=== PATIENT | female | born 1975 | race Caucasian/White ===

== ENCOUNTER 2022-11-30 00:35 | Inpatient (IN) | payer OTHER ==
[2022-11-30] MEDS ORDERED: ONDANSETRON *ODT* 4 MG TABLET ONE (01:30)
[2022-11-30] MEDS ORDERED: ONDANSETRON *ODT* 4 MG TABLET SL ONE (01:40)
[2022-11-30] MEDS ORDERED: morphine CARPU-JECT 4 MG/1 ML DISP.SYRIN IVPUSH ONE (01:40)
[2022-11-30] MEDS ORDERED: SODIUM CHLORIDE 0.9% 500 ML INFUS.BAG IV ONE (01:40)
[2022-11-30] MEDS ORDERED: morphine SULFATE 4 MG/ML VIAL ONE (02:14)
[2022-11-30 02:48] LABS: BASO % 0.2 % (0-2.0); HEMOGLOBIN 9.4 GM/dL (10.7-15.3); LYMPH % 22.8 % (8-40); MCHC 31.3 g/dl (32.0-36.0); MEAN PLT VOLUME 8.3 fl (7.5-11.1); MONO % 10.1 % (3.8-10.2); NEUT % 65.9 % (42.8-82.8); PLATELET COUNT 397 10^3/uL (134-434); RBC 4.69 M/mm3 (3.60-5.2); RDW 19.5 % (11.6-15.6); WHITE BLOOD COUNT 9.7 K/mm3 (4.0-10.0)
[2022-11-30 03:07] LABS: CALCIUM 9.4 mg/dL (8.5-10.1)
[2022-11-30 03:08] LABS: ALBUMIN 3.8 g/dl (3.4-5.0); MAGNESIUM 2.2 mg/dL (1.8-2.4)
[2022-11-30 03:11] LABS: CREATININE 0.7 mg/dL (0.55-1.3)
[2022-11-30 03:12] LABS: TOT PROT 7.8 g/dl (6.4-8.2)
[2022-11-30 03:13] LABS: BILIRUBIN,TOTAL 0.2 mg/dL (0.2-1)
[2022-11-30 03:15] LABS: INR 0.95 (0.83-1.09)
[2022-11-30 03:18] LABS: ACTIVATED PTT 35.2 SECONDS (25.2-36.5)
[2022-11-30 03:34] LABS: URINE APPEARANCE CLOUDY; URINE BILIRUBIN NEGATIVE (NEGATIVE); URINE COLOR YELLOW; URINE GLUCOSE (UA) NEGATIVE (NEGATIVE); URINE KETONE NEGATIVE (NEGATIVE); URINE LEUK ESTERASE NEGATIVE (NEGATIVE); URINE NITRITE NEGATIVE (NEGATIVE); URINE PROTEIN NEGATIVE (NEGATIVE); URINE UROBILINOGEN 0.2 mg/dL (0.2-1.0)
[2022-11-30] MEDS ORDERED: CEFTRIAXONE 1,000 MG in DEXTROSE 5%-WATER - 50 ML IVPB ONE (04:28)
[2022-11-30] MEDS ORDERED: CEFTRIAXONE 1 GM/50 ML BAG ONE (05:06)
[2022-11-30 05:30] LABS: ANISOCYTOSIS 3+; MACROCYTOSIS 0; ROULEAU 1+
[2022-11-30] MEDS ORDERED: morphine CARPU-JECT 2 MG/1 ML DISP.SYRIN IVPUSH ONE (05:44)
[2022-11-30] MEDS ORDERED: ONDANSETRON 4 MG/2 ML VIAL IVPUSH PRN (05:48)
[2022-11-30] MEDS: SODIUM CHLORIDE 1,000 ML IV SCH ×2 (06:28→15:17)
[2022-11-30 09:10] LABS: RETICULOCYTES 1.49 % (0.5-1.5)
[2022-11-30 13:22] VITALS: BMI 37.4
[2022-11-30] MEDS ORDERED: AMPICILLIN NA/SULBACTAM NA 3 GM in SODIUM CHLORIDE 100 ML IVPB SCH (15:00)
[2022-11-30] MEDS: ACETAMINOPHEN 1000 MG/100 ML BAG IVPB PRN (15:18)
[2022-11-30] MEDS: AMPICILLIN NA/SULBACTAM NA 3 GM in SODIUM CHLORIDE 100 ML IVPB SCH ×2 (15:54→21:09)
[2022-11-30] MEDS: D5-1/2NS+10 MEQ KCL - 10 MEQ/1,000 ML INFUS.BAG IV SCH (17:57)
[2022-11-30] MEDS: FAMOTIDINE 20 MG/50 ML IVPB 20 MG/50 ML MG IVPB SCH (22:51)
[2022-12-01] MEDS: AMPICILLIN NA/SULBACTAM NA 3 GM in SODIUM CHLORIDE 100 ML IVPB SCH ×4 (03:28→21:32)
[2022-12-01] MEDS: D5-1/2NS+10 MEQ KCL - 10 MEQ/1,000 ML INFUS.BAG IV SCH ×3 (05:39→23:47)
[2022-12-01 08:42] LABS: BASO % 0.3 % (0-2.0); EOS % 1.7 % (0-4.5); HEMATOCRIT 25.5 % (32.4-45.2); HEMOGLOBIN 8.3 GM/dL (10.7-15.3); MCH 20.8 pg (25.7-33.7); MCHC 32.5 g/dl (32.0-36.0); MEAN CELL VOLUME 63.9 fl (80-96); MEAN PLT VOLUME 8.1 fl (7.5-11.1); MONO % 10.2 % (3.8-10.2); NEUT % 57.8 % (42.8-82.8); PLATELET COUNT 294 10^3/uL (134-434); RBC 3.99 M/mm3 (3.60-5.2); RDW 19.7 % (11.6-15.6); WHITE BLOOD COUNT 6.7 K/mm3 (4.0-10.0)
[2022-12-01] MEDS ORDERED: IRON SUCROSE INJECTION 200 MG in SODIUM CHLORIDE 90 ML IVPB ONE (09:00)
[2022-12-01 09:05] LABS: CALCIUM 8.8 mg/dL (8.5-10.1)
[2022-12-01 09:06] LABS: ALBUMIN 3.2 g/dl (3.4-5.0); BLOOD UREA NITROGEN 7.8 mg/dL (7-18)
[2022-12-01 09:09] LABS: CREATININE 0.6 mg/dL (0.55-1.3)
[2022-12-01 09:10] LABS: BILIRUBIN,TOTAL 0.5 mg/dL (0.2-1)
[2022-12-01 09:11] LABS: TOT PROT 6.7 g/dl (6.4-8.2)
[2022-12-01] MEDS ORDERED: CEFTRIAXONE 1 GM in DEXTROSE 5%-WATER - 50 ML IVPB SCH (10:00)
[2022-12-01] MEDS: FAMOTIDINE 20 MG/50 ML IVPB 20 MG/50 ML MG IVPB SCH ×2 (12:55→22:36)
[2022-12-01] MEDS: ACETAMINOPHEN 1000 MG/100 ML BAG IVPB PRN (16:08)
[2022-12-02] MEDS: AMPICILLIN NA/SULBACTAM NA 3 GM in SODIUM CHLORIDE 100 ML IVPB SCH ×3 (02:31→15:44)
[2022-12-02 09:12] LABS: HEMATOCRIT 26.5 % (32.4-45.2); HEMOGLOBIN 8.3 GM/dL (10.7-15.3); MCH 20.1 pg (25.7-33.7); MCHC 31.3 g/dl (32.0-36.0); MEAN PLT VOLUME 8.7 fl (7.5-11.1); PLATELET COUNT 298 10^3/uL (134-434); RBC 4.14 M/mm3 (3.60-5.2); RDW 19.1 % (11.6-15.6); WHITE BLOOD COUNT 6.7 K/mm3 (4.0-10.0)
[2022-12-02 09:44] LABS: CALCIUM 8.5 mg/dL (8.5-10.1)
[2022-12-02 09:45] LABS: ALBUMIN 3.2 g/dl (3.4-5.0); BLOOD UREA NITROGEN 9.3 mg/dL (7-18); MAGNESIUM 2.1 mg/dL (1.8-2.4)
[2022-12-02 09:47] LABS: CREATININE 0.7 mg/dL (0.55-1.3); PHOSPHOROUS 3.7 mg/dL (2.5-4.9)
[2022-12-02 09:48] LABS: BILIRUBIN,TOTAL 0.4 mg/dL (0.2-1); TOT PROT 6.6 g/dl (6.4-8.2)
[2022-12-02] MEDS: FAMOTIDINE 20 MG/50 ML IVPB 20 MG/50 ML MG IVPB SCH (10:26)
[2022-12-02] MEDS ORDERED: BUPIVACAINE HCL/PF 0.5% (5MG/ML) 10 ML VIAL ONE (12:26)
[2022-12-02] MEDS ORDERED: ACETAMINOPHEN INJECTION 100 ML IVPB ONE (12:53)
[2022-12-02] MEDS ORDERED: PROPOFOL 20 ML ONE (13:01)
[2022-12-02] MEDS ORDERED: SUCCINYLCHOLINE CHLORIDE 200 MG/10 ML SYRINGE ONE (13:01)
[2022-12-02] MEDS ORDERED: ROCURONIUM BROMIDE 50 MG/5 ML SYRINGE ONE (13:01)
[2022-12-02] MEDS ORDERED: LIDOCAINE HCL/PF 2% SDV 5ML VIAL ONE (13:02)
[2022-12-02] MEDS ORDERED: MIDAZOLAM HCL 2 MG/2 ML SINGLE DOSE VIAL ONE (13:40)
[2022-12-02] MEDS ORDERED: DEXAMETHASONE SOD PHOSPHATE 4 MG/1 ML VIAL ONE (13:50)
[2022-12-02] MEDS ORDERED: ONDANSETRON 4 MG/2 ML VIAL IVPUSH PRN ×2 (13:53→15:35)
[2022-12-02] MEDS ORDERED: LACTATED RINGERS SOLUTION 1,000 ML IV SCH (14:00)
[2022-12-02] MEDS ORDERED: BUPIVACAINE HCL/PF 0.5% (5MG/ML) 10 ML VIAL IJ ONE ×3 (14:08)
[2022-12-02] MEDS ORDERED: ONDANSETRON 4 MG/2 ML VIAL ONE (14:39)
[2022-12-02] MEDS ORDERED: NEOSTIGMINE METHYLSULFATE 0.5 MG/1 ML - 10 ML MDV ONE (15:03)
[2022-12-02] MEDS ORDERED: GLYCOPYRROLATE 0.2 MG/1 ML VIAL ONE (15:03)
[2022-12-02] MEDS: LACTATED RINGERS SOLUTION 1,000 ML IV SCH ×3 (15:20→17:05)
[2022-12-02] MEDS ORDERED: KETOROLAC TROMETHAMINE 30 MG/1 ML VIAL IM PRN (15:24)
[2022-12-02] MEDS ORDERED: DOCUSATE SODIUM 100 MG CAPSULE (FP) PO PRN (15:24)
[2022-12-02] MEDS ORDERED: ACETAMINOPHEN 1000 MG/100 ML BAG IVPB PRN (15:26)
[2022-12-02 22:06] VITALS: RESP 18
[2022-12-02] MEDS: oxyCODONE HCL 5 MG TABLET PO PRN (22:34)
[2022-12-03] MEDS: LACTATED RINGERS SOLUTION 1,000 ML IV SCH ×2 (01:32→09:58)
[2022-12-03] MEDS: oxyCODONE HCL 5 MG TABLET PO PRN (05:58)
[2022-12-03] MEDS ORDERED: IRON SUCROSE INJECTION 200 MG in SODIUM CHLORIDE 90 ML IVPB ONE (08:00)
[2022-12-03 11:02] LABS: BASO % 0.1 % (0-2.0); HEMATOCRIT 26.3 % (32.4-45.2); HEMOGLOBIN 8.4 GM/dL (10.7-15.3); LYMPH % 13.6 % (8-40); MCH 20.7 pg (25.7-33.7); MCHC 32.1 g/dl (32.0-36.0); MEAN CELL VOLUME 64.4 fl (80-96); MEAN PLT VOLUME 8.6 fl (7.5-11.1); MONO % 8.2 % (3.8-10.2); NEUT % 78.1 % (42.8-82.8); PLATELET COUNT 336 10^3/uL (134-434); RBC 4.09 M/mm3 (3.60-5.2); RDW 19.3 % (11.6-15.6); WHITE BLOOD COUNT 11.2 K/mm3 (4.0-10.0)
[2022-12-03 11:12] LABS: ALBUMIN 3.6 g/dl (3.4-5.0); CALCIUM 9.2 mg/dL (8.5-10.1)
[2022-12-03 11:13] LABS: MAGNESIUM 1.8 mg/dL (1.8-2.4)
[2022-12-03 11:16] LABS: CREATININE 0.7 mg/dL (0.55-1.3); PHOSPHOROUS 3.6 mg/dL (2.5-4.9)
[2022-12-03 11:17] LABS: BILIRUBIN,TOTAL 0.3 mg/dL (0.2-1); TOT PROT 7.5 g/dl (6.4-8.2)
[2022-12-03 11:58] LABS: ANISOCYTOSIS 3+; MACROCYTOSIS 0
[2022-12-04] MEDS: oxyCODONE HCL 5 MG TABLET PO PRN ×2 (00:16→13:43)
[2022-12-04] MEDS ORDERED: IRON SUCROSE INJECTION 200 MG in SODIUM CHLORIDE 90 ML IVPB ONE (09:00)
[2022-12-04 14:49] VITALS: BP 130/72; PULSE 68; TEMP 98.8
== END 2022-12-04 17:05 | disposition home or self-care (01) | DRG 263 ==
LOC: JER 00:35 → JERBED 03:13 → OBSVTOIN 05:45 → J6S 14:00
PROVIDERS: ADMIT Internal Medicine; ATTEND Internal Medicine
PROC: 0FT44ZZ Resection of Gallbladder, Percutaneous Endoscopic Approach (ICD-10-PCS; principal; 2022-12-02 13:00)
DX: K80.00 Calculus of gallbladder with acute cholecystitis without obstruction (principal); E78.00 Pure hypercholesterolemia, unspecified; D50.9 Iron deficiency anemia, unspecified; N92.0 Excessive and frequent menstruation with regular cycle; E66.9 Obesity, unspecified; Z68.37 Body mass index [BMI] 37.0-37.9, adult; K76.0 Fatty (change of) liver, not elsewhere classified
CPT/HCPCS: 0241U-QW; 36415; 71045-TC-FY; 76705-TC; 80053; 81003; 82728; 83540; 83550; 83690; 83735; 84100; 84703; 85025; 85027; 85045; 85610; 85730; 86850; 86900; 86901; 87086; 88304-TC; 93005; 93010; 94760; 99285-25; G0378; J1756; Q0162